=== PATIENT | female | born 1980 | race Caucasian/White ===

== ENCOUNTER → 2019-09-26 12:18 | Outpatient (CLI) | payer OTHER, SELFPAY ==
[2018-11-11 12:31] VITALS: BMI 38.5
--- NOTE | 2019-09-26 12:21 | US_ITS ---
STUDY: THYROID ULTRASOUND REASON FOR EXAM: Female, 39 years old. NODULES SYNTHROID TECHNIQUE: Ultrasound evaluation of the thyroid was performed with real-time and static houston-scale imaging. COMPARISON: Comparison is made with prior examination dated February 19, 2016. FINDINGS: RIGHT LOBE: The right lobe of the thyroid gland is enlarged and measures 5.3 cm x 2.6 cm by 2.1 cm. There is a heterogeneous echotexture. Roots again, multiple hypoechoic nodules are seen in the largest measures 1.1 cm x 1.1 cm x 1.1 cm. This is in the mid pole of the right lobe. This is unchanged. LEFT LOBE: The left lobe of the thyroid gland measures 4.77 x 1.8 cm x 1.4 cm. There is a heterogeneous echotexture. Multiple small hypoechoic solid nodules in the left lobe. The largest measures 1.2 cm x 0.7 cm x 0.7 cm. This is in the upper midportion of the lobe. This is unchanged. ISTHMUS: The isthmus is enlarged and measures 7.0 mm. The regional lymph nodes are normal. US/Thyroid IMPRESSION: Heterogeneous appearance of the thyroid gland with multiple nodules in both lobes as described. There has been essentially no change. Electronically Signed: Ky Win, at 15:24 EDT , Service support ,
== END ==
PROVIDERS: PCP Internal Medicine; Referring Provider Internal Medicine; Visit Provider Internal Medicine
DX: E04.1 Nontoxic single thyroid nodule (principal)
CPT/HCPCS: 76536

== ENCOUNTER → 2021-02-24 13:16 | Outpatient (CLI) | payer OTHER, SELFPAY ==
--- NOTE | 2021-02-24 13:30 | RAD_ITS ---
STUDY: X-RAY CHEST REASON FOR EXAM: Female, 41 years old. COUGH, COVID TECHNIQUE: PA and lateral views of the chest. COMPARISON: Comparison is made with prior study dated 09/10/2016. FINDINGS: Elevation of the right hemidiaphragm. The lungs are clear. There is no demonstrated pleural abnormality. Normal size heart. Normal mediastinum and carmen. Normal visualized pulmonary arteries. Normal visualized aortic arch and descending thoracic aorta. Normal visualized thoracic spine. Normal visualized ribs, clavicles, and shoulders. There is no demonstrated abnormality of the visualized soft tissue structures of the upper abdomen. RAD/Chest PA and Lateral IMPRESSION: Normal x-ray examination of the chest. Electronically Signed: Ky Win MD at 14:20 EDT , Service support ,
[2021-02-24 15:19] LABS: Hematocrit 41.1 % (37-47); Hemoglobin 13.6 g/dL (12.0-15.0); Mean Corp Hgb Conc 33.1 g/dL (32-36); Mean Corpuscular Hgb 29.7 pg (27.0-32.0); Mean Corpuscular Volume 89.7 fL (81-99); Platelet Count 332 K/mm3 (150-450); RBC Distribution Width CV 13.2 % (11.6-14.6); RBC Distribution Width SD 42.9 fl (35.1-43.9); Red Blood Count 4.58 M/mm3 (4.2-5.4); White Blood Count 11.8 K/mm3 (4.4-11.0)
[2021-02-24 15:46] LABS: Albumin, Serum 3.4 g/dL (3.2-5.0); BUN 16 mg/dL (7-18); Calcium,Total 9.3 mg/dL (8.5-10.1); Chloride 105 mmol/L (98-107); Creatinine, Serum 0.67 mg/dL (0.55-1.02); EST Glomerular Filtration Rate 104 mL/min (>60); Est Glom Filt Rate - Afr Amer 126 mL/min (>60); Glucose 127 mg/dL (74-106); Phosphorus 2.9 mg/dL (2.5-4.9); Potassium 3.9 mmol/L (3.5-5.1); Sodium Level 136 mmol/L (136-145); Thyroid Stim Hormone (TSH) 7.87 uIU/mL (0.358-3.74)
== END ==
PROVIDERS: PCP Internal Medicine; Referring Provider Nurse Practitioner; Visit Provider Nurse Practitioner
DX: R05 Cough (principal); U07.1 COVID-19
CPT/HCPCS: 36415; 71046; 80069; 84443; 85027

== ENCOUNTER → 2021-02-25 11:33 | Outpatient (CLI) | payer OTHER, SELFPAY | PROVIDERS: PCP Nurse Practitioner; Visit Provider Nurse Practitioner | DX: R05 Cough (principal) ==

== ENCOUNTER 2021-09-03 08:31 | Outpatient (CLI) | payer OTHER, SELFPAY ==
--- NOTE | 2021-09-03 08:41 | US_ITS ---
STUDY: THYROID ULTRASOUND REASON FOR EXAM: Female, 41 years old. History of thyroid nodules. TECHNIQUE: Ultrasound evaluation of the thyroid was performed with real-time and static houston-scale imaging. COMPARISON: None. FINDINGS: RIGHT LOBE: The right lobe of the thyroid gland is enlarged and measures 5.6 cm x 2.2 cm x 1.8 cm. There is a heterogeneous echotexture. Once again, multiple solid nodules are seen in the right lobe. The largest measures 1.6 cm x 1 cm x 1.1 cm. This has increased in size as compared to prior study. Biopsy is recommended if not already performed. LEFT LOBE: The left lobe of the thyroid gland measures 4.9 cm x 1.9 cm x 1.3 cm. There is a heterogeneous echotexture. Multiple nodules are seen. The largest measures 1.2 cm x 1.1 cm x 0.6 cm. This is unchanged. ISTHMUS: The isthmus measures 7 mm. The regional lymph nodes are normal. US/Thyroid IMPRESSION: Mild increase in size of the dominant nodule in the right lobe as described. Biopsy recommended. Electronically Signed: Ky Win MD at 12:39 EDT ,
== END 2021-09-03 23:59 | disposition home or self-care (01) ==
PROVIDERS: PCP Internal Medicine; Referring Provider Internal Medicine; Visit Provider Internal Medicine
DX: E04.1 Nontoxic single thyroid nodule (principal)
CPT/HCPCS: 76536

== ENCOUNTER 2022-05-23 15:00 | Outpatient (RCR) | payer OTHER, SELFPAY ==
--- NOTE | 2022-04-07 15:02 | HP.PTEVAL ---
Patient's Visit Information NIXON TAYLOR is a 42 year old F referred to Physical Therapy by Dr. Ansley Nieves DO with a diagnosis of LBP with L LE radiculopathy. Date of Evaluation: 04/07/22 Physical Therapist: Navid Nur, PT, ATC - Visit Plan Frequency: 1x/Week Duration: 1 Week Plan: Patient care will be transferred to Catherine Jo MDT, PT on her next PT visit - Subjective Pt reports no LBP today, but notes she has had L sciatic nerve pain for approximately 3 months. Pt notes the pain has progressively worsened over this time span. Pt reports she has had the pain since having twins. Pt reports she has no pain lying flat on her back. Pt reports she begins to experience pain as soon as she gets out of bed and begins walking. Pt notes she continues to have the pain any time she is on it. 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 Pt reports no sleep difficulty at this time secondary to pain. Pt reports she experiences decreased pain with sitting. 1/10 pain while sitting here in the clinic, 7/10 pain at worst (at night time when she gets out of bed - Pain L LE Pain Intensity (Out of 10): 1 Pain Intensity Range: 7 - Objective Neuro: B LE sensation is WNL to light touch. L patellar reflex 3/3, R 1/3. MMT: B LE's are 5/5 throughout with exception to L knee ext 4-/5 and results in L LE pain. L/S ROM: moderate limitation with flex, severe limitation with ext. extension provokes L LE radiculopathy. repeated movements: flex and ext peripheralize sx's into LE. REIL 10x2 NE. special tests: All hip tests were negative - Balance/Special Test Scores Oswestry Low Back Score: 25 - Rehabilitation Potential Physical Therapy Diagnosis: Pt has L LE pain and difficulty with ambulation secondary to L/S nerve root impingement Rehabilitation Potential: Fair - Anticipated Interventions Patient/Client Instruction: Educate patient on: Condition, Plan of Care For the Purpose of:: To improve self management Thank you for the opportunity to evaluate your patient. For Medicare and Medicare HMO plans, please review the plan of care and approve it. It will need to be FAXED BACK to us at [phone] for Medicare purposes. For Medicare only, by signing this I certify the plan of care. Please let me know if there are questions or concerns regarding this plan of care. Physician Signature: Date:
== END 2022-05-23 19:00 | disposition home or self-care (01) ==
LOC: PT 15:00
PROVIDERS: PCP Internal Medicine; Referring Provider Internal Medicine; Visit Provider Internal Medicine
DX: M54.42 Lumbago with sciatica, left side (principal)
CPT/HCPCS: 97113; 97161; 97530

== ENCOUNTER 2022-08-17 12:30 | Outpatient (RCR) | payer OTHER, SELFPAY ==
--- NOTE | 2022-08-04 11:46 | HP.PTEVAL ---
Patient's Visit Information NIXON TAYLOR is a 42 year old F referred to Physical Therapy by Dr. Ansley Nieves DO with a diagnosis of HLD L4-L5 AND S/P DISCECTOMY. Date of Evaluation: 08/03/22 Physical Therapist: Catherine Jo, PT, Cert MDT - Visit Plan Frequency: 2-3x /Week Duration: 6-8 WKS Plan: POSTURE CORRECTION/STRENGTHENING. CORE AND HIP STRENGTH AND STABILITY TRAINING. NEUTRAL SPINE ONLY UNTIL NEXT SURGICAL FOLLOW UP. SOPHIA LE ROM, STRETCHING AND STRENGTHENING. INSTRUCTION IN PROPER BODY MECHANICS. 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 PATIENT REPORTS SHE HAS A GOOD WORK STATION SET UP AND SHE CAN SIT OR STAND. Disability: NO. Present symptoms: SOMETIMES L ZHOU HURTS. SOMETIMES L BUTTOCK PAIN. NO LOW BACK PAIN. FEELS LIKE THERE IS A PIECE OF GUM ON BOTTOM OF L FOOT BUT GETTING BETTER. OTHERWISE PATIENT DENIES SOPHIA LE NUMBNESS AND TINGLING. STEPS ARE DIFFICULT BUT RECIPRICAL. LLE WEAKNESS. Present since: 10 YEARS AGO. FEB 2022 SIGNIFICANT WORSENING. Pain Scale: WORST 3/10, LEAST 0/10. Currently: 0/10. Is it getting better, worse or staying the same: GETTING BETTER BUT CONCERNED ABOUT L BUTTOCK PAIN. Commenced as a result of: NO APPARENT REASON. Symptoms at onset: LEFT LE PAIN, NUMBNESS AND TINGLING. (NO LOW BACK PAIN). Worse: SITTING ESPECIALLY WITH PRESSURE AGAINST LEG. Better: STANDING AND WALKING. Disturbed sleep: NO. Previous history/Previous treatment: APPROX 10 YEAR HISTORY OF EPISODIC LBP TREATED WITH STEROIDS UNTIL FEB 2022. Treatment this episode: 1 MONA WITHOUT BENEFIT MAY 2022. HOSPITALIZED 2 TIMES AND ED 4 TIMES FOR THIS SINCE FEB 2022. PHYSICAL THERAPY - AQUATIC THERAPY - GOT WORSE. STATES SHE COULD NOT GET IN TO A DOCTOR OR GET AN MRI FOR A PROLONGED PERIOD OF TIME. ALSO TRIED MULTIPLE PAIN MEDS BEFORE SURGERY. PATIENT REPORTS SHE WAS IN SEVERE PAIN FOR ABOUT 4 MONTHS AND UNABLE TO WALK FOR ABOUT A MONTH BEFORE SURGERY. AT THAT TIME SHE HAD TO TRAVEL TO APPOINTMENTS BY AMBULANCE AND COULD NOT GET OUT OF BED. Coughing/sneezing/straining: NEGATIVE. Gait: NOT WALKING LONG DISTANCES BECAUSE WORKING AND HAS KIDS AND DOESN'T HAVE TIME TO TAKE WALKS BUT GETTING A TREADMILL TOMORROW. Bowel or Bladder Dysfunction: NO. Accidents: NO. Unexplained weight loss: NO. Imaging: NONE SINCE SURERY. PMH/Recent major surgery: THYROID DZ, GALLBLADDER REMOVAL. OTHER: SURGICAL FOLLOW UP PENDING IN [address] MARIN OUT OF [facility] IN [facility]. PATIENT REPORTS RESTRICTION OF NO BENDING, LIFTING OR TWISTING FOR 6 WKS AND 6 WKS WAS YESTERDAY. STATES SHE HAS LOST SO MUCH FLEXABILITY AND STRENGTH FROM BEING BED RIDDEN SO LONG. DOS: 06/20/22 - PATIENT REPORTS SHE WAS TOLD IT WAS A COMPLICATED SURGERY WITH A LOT OF NERVE INVOLVEMENT. ONE NIGHT IN HOSPITAL AFTER SURGERY AND STARTED WALKING RIGHT AWAY AND MOST OF PAIN WAS GONE RIGHT AWAY. - Objective Sitting/Standing Posture: FH. RSH'S. NORMAL LORDOSIS. NO RELEVANT LATERAL SHIFT. Other Observations: THIS PATIENT AMBUALTES INDEP'LY INTO PT WITH FAIR CADANCE AND NO AD'S OR LOB. Sensory deficit: SOPHIA LE LIGHT TOUCH SENSATION GROSSLY INTACT AND SYMMETRICAL. ROM deficit: TIGHT SOPHIA HS'S AND GASTROC SOLEUS COMPLEX'S. Motor deficit: SOPHIA LE STRENGTH GROSSLY 5/5 WITH MMT'ING EXCEPT: R HIP 4/5, L HIP 4-/5, L KNEE 4/5. Dural Signs: NEGATIVE SOPHIA LE'S. Lumbar mvmt loss: NT. Core strength: POOR. Palpation: INCISION LOOKS GOOD WITHOUT ANY SIGNS OF INFECTION, REDNESS OR DRAINAGE. TREATMENT: NEUROMUSCULAR REEDUCATION - RETRAINING OF MVMT AND POSTURE FOR SITTING, LYING AND STANDING ACTIVITIES. INSTRUCTED IN SEATED SOPHIA LE DURAL STRETCHING AND WALKING PROGRAM. EMPHASIZED IMPORTANCE OF STARTING SLOW AND AVOIDING INCREASING SX'S. PATIENT COMMUNICATED/DEMONSTRATED A GOOD UNDERSTANDING OF ALL INSTRUCTIONS AFTER GIVEN. - Balance/Special Test Scores Oswestry Low Back Score: 13 - Goals Goal 1:: DECREASE C/O LLE SX'S. Goal Time Frame: 6-8 Weeks Goal 2:: IMPROVE LIFTING, SITTING, STANDING, TRAVEL, WORK AND HOMEMAKING FUNCTION Goal Time Frame: 6-8 Weeks Goal 3:: INSTRUCT IN PROPHYLAXIS Goal Time Frame: 6-8 Weeks - Anticipated Interventions Patient/Client Instruction: Educate patient on: Condition, Plan of Care, Risk Factors For the Purpose of:: To improve self management Therapeutic Exercise to Include: Strength training, Body mechanics, Postural training, Flexibilty training, Neuromotor development, Dynamic Lumbar Stabilization For the Purpose of:: To decrease pain, To increase ROM, To improve muscle performance and motor function, To increase tolerance to activity/condition/position, To improve ability of physical actions for home/community/work/leisure Thank you for the opportunity to evaluate your patient. For Medicare and Medicare HMO plans, please review the plan of care and approve it. It will need to be FAXED BACK to us at [phone] for Medicare purposes. For Medicare only, by signing this I certify the plan of care. Please let me know if there are questions or concerns regarding this plan of care. Physician Signature: Date:
--- NOTE | 2022-09-02 12:55 | HP.PTDCNRP_ITS ---
NIXON TAYLOR was seen in my office for initial evaluation on 08/03/22. The following Plan of Care was established for this patient: Initial Frequency: 2-3x /Week Initial Duration: 6-8 WKS Patient/Client Instruction: Educate patient on: Condition, Plan of Care, Risk Factors For the Purpose of:: To improve self management Therapeutic Exercise to Include: Strength training, Body mechanics, Postural training, Flexibilty training, Neuromotor development, Dynamic Lumbar Stabilization For the Purpose of:: To decrease pain, To increase ROM, To improve muscle performance and motor function, To increase tolerance to activity/c ondition/position, To improve ability of physical actions for home/community/work/leisure This patient was last seen in our office . Pertinent comments regarding their Physical therapy will appear below: CANCELLED ALL REMAINING JOSE'TS DUE TO WORK SCHEDULE At this point I will be discontinuing this patient from physical therapy. I would be happy to see this patient again in the future if found appropriate by the physician. Thank you! Catherine Jo, PT, Cert MDT Balance/Gait/Functional tests - Balance/Special Test Scores Oswestry Low Back Score: 13
== END 2022-08-17 19:00 | disposition home or self-care (01) ==
LOC: PT 12:30
PROVIDERS: PCP Internal Medicine; Referring Provider Internal Medicine; Visit Provider Internal Medicine
DX: S33.141A Dislocation of L4/L5 lumbar vertebra, initial encounter (principal); Z98.890 Other specified postprocedural states
CPT/HCPCS: 97110; 97112; 97162; 97530

== ENCOUNTER → 2022-10-07 | Outpatient (CLI) | payer OTHER, SELFPAY ==
--- NOTE | 2022-10-07 13:02 | US_ITS ---
INDICATION: NODULE EXAMINATION: Ultrasound US Thyroid (eg thyroid, parathyroid, parotid) TECHNIQUE: Guan scale and color doppler imaging was performed of the thyroid gland. COMPARISON: 02/19/2016, 09/03/2021 FINDINGS: RIGHT THYROID LOBE: 6.0 x 2.0 x 1.9 cm. Heterogeneous echotexture with normal vascularity. 1.5 x 1.2 x 0.8 cm mixed cystic and solid isoechoic nodule. 9 x 8 x 1.1 mm mixed cystic and solid isoechoic nodule. Numerous smaller nodules. LEFT THYROID LOBE: 4.6 x 1.8 x 1.2 cm. Heterogeneous echotexture with normal vascularity. 1.1 x 0.9 x 0.3 cm mixed cystic and solid isoechoic nodule. 1.1 x 0.7 x 0.4 cm mostly cystic, isoechoic nodule. Numerous smaller nodules. ISTHMUS: 5 mm. No thyroid nodules are present. US/Thyroid IMPRESSION: No significant change in multinodular thyroid goiter compared to 02/19/2016. Electronically Signed: Erwin Marte MD at 19:14 EDT ,
== END | disposition home or self-care (01) ==
LOC: US 12:59
PROVIDERS: PCP Internal Medicine; Referring Provider Internal Medicine; Visit Provider Internal Medicine
DX: E04.1 Nontoxic single thyroid nodule (principal)
CPT/HCPCS: 76536